=== PATIENT | female | born 2000 | race Caucasian/White ===

== ENCOUNTER 2019-08-05 17:06 | Emergency (ER) | payer SELFPAY ==
--- OUTSIDE RECORDS SUMMARY | 2019-08-05 17:08 | XMS REPORT ---
:2000 [facility] Address [address] [place] [address] Dr. Davis [address] [place] [id number] Care Team Providers Name Role Phone Unavailable Unavailable Unavailable Problems This patient has no known problems. Allergies, Adverse Reactions, Alerts This patient has no known allergies or adverse reactions. Medications This patient has no known medications.
[2019-08-05] MEDS ORDERED: IBUPROFEN 200 MG TAB PO ONE (18:12)
[2019-08-05] MEDS ORDERED: LIDOCAINE 1% W/EPI 1:100,000 MDV 20 ML VIAL ONE (18:12)
[2019-08-05] MEDS ORDERED: TETANUS & DIPHTHERIA TOX,ADULT 0.5 ML VIAL ONE (18:12)
[2019-08-05] MEDS ORDERED: IBUPROFEN 400 MG TAB ONE (18:12)
--- NOTE | 2019-08-05 19:11 | EDPHYS ---
Physician Documentation [facility] Name: Buddy Dejesus Age: 18 yrs Sex: Female : 2000 Arrival Date: 08/05/2019 Time: 17:08 Bed 19 Private MD: ED Physician Denis Morelos HPI: 08/05 18:07 This 18 yrs old Female presents to ER via Ambulatory with complaints of jmm Laceration To Hand. 18:07 Onset: The symptoms/episode began/occurred acutely, just prior to arrival. Associated jmm signs and symptoms: Pertinent negatives: deformity, heavy bleeding, loss of consciousness, numbness distal to injury. This is a 18 year old female with a history of seizures, adhd that presents to the ED with complaints of laceration to her right hand after a knife slipped out of a scabbard she was holding upside down. patient unsure of tetanus immunization. . 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 - Social history:: Smoking status: . - Ebola Screening: : Patient denies travel to an Ebola-affected area in the 21 days before illness onset. ROS: 18:07 Constitutional: Negative for fever, chills, and weight loss, Cardiovascular: Negative jmm for chest pain, palpitations, and edema, Respiratory: Negative for shortness of breath, cough, wheezing, and pleuritic chest pain. 18:07 MS/extremity: Positive for laceration. 18:07 Skin: Positive for laceration(s). 18:07 Neuro: 18:07 All other systems are negative. Exam: 18:07 Constitutional: This is a well developed, well nourished patient who is awake, alert, jmm and in no acute distress. Head/Face: atraumatic. Eyes: EOMI, no conjunctival erythema appreciated ENT: Moist Mucus Membranes Neck: Trachea midline, Supple Chest/axilla: Normal chest wall appearance and motion. Cardiovascular: Regular rate and rhythm. No edema appreciated Respiratory: Normal respirations, no respiratory distress appreciated Abdomen/GI: Non distended, soft Back: Normal ROM 18:07 Skin: 3 cm laceration noted to the right hand. 18:07 Neuro: Orientation: is normal, Mentation: is normal, Memory: is normal. 18:07 Psych: Behavior/mood is pleasant, cooperative. Vital Signs: 17:11 BP 132 / 90; Pulse 91; Resp 17; Temp 98.0(TE); Pulse Ox 100% on R/A; Weight 74.84 kg tw2 (R); Height 5 ft. 8 in. (172.72 cm) (R); Pain 6/10; 17:11 Body Mass Index 25.09 (74.84 kg, 172.72 cm) tw2 Laceration: 19:08 Wound Repair of 3cm ( 1.2in ) subcutaneous laceration to right hand. Distal jmm neuro/vascular/tendon intact. Anesthesia: Local anesthetic administered with 5 mls of 1% lidocaine. Wound prep: Simple cleansing with betadine by me. Skin closed with 5 5-0 Prolene using simple sutures and sterile technique. Patient tolerated well. MDM: 18:07 Patient medically screened. [facility] 19:08 Data reviewed: vital signs, nurses notes. Counseling: I had a detailed discussion with [facility] the patient and/or guardian regarding: the historical points, exam findings, and any diagnostic results supporting the discharge/admit diagnosis, the need for outpatient follow up, to return to the emergency department if symptoms worsen or persist or if there are any questions or concerns that arise at home. ED course: Patient given wound infection return precautions. patient understood and agrees with the plan of care. 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 Exp: em 02/24/2021. Lot #: [id number]. } Route: IM; Site: right deltoid; 19:00 Follow up: Response: No adverse reaction em 18:50 Drug: Lidocaine (1 %) 20 ml Volume: 20 ml; Route: Infiltration; em 19:00 Follow up: Response: No adverse reaction; Pain is decreased em Disposition: 08/05/19 19:10 Discharged to Home. Impression: Hand Laceration. - Condition is Stable. - Discharge Instructions: Laceration Care, Adult. - Medication Reconciliation Form, Thank You Letter, Antibiotic Education, Prescription Opioid Use, Work release form form. - Follow up: Private Physician; When: 1 week; Reason: Recheck today's complaints, Continuance of care, Staple/Suture removal, Re-evaluation by your physician. Addendum: 08/09/2019 06:33 Co-signature as Attending Physician, Denis Morelos MD I agree with the assessment and k dr plan of care. Signatures: Denis Morelos MD MD [facility] Marcelo Etienne PA PA susiem Roberto Lam, CAKE KNOCKER CAKE KNOCKER em Mirta Love RN RN tw2 Michele Dupree RN RN jd3 Corrections: (The following items were deleted from the chart) 08/05 19:39 19:10 08/05/2019 19:10 Discharged to Home. Impression: Hand Laceration. Condition is jd3 Stable. Forms are Medication Reconciliation Form, Thank You Letter, Antibiotic Education, Prescription Opioid Use. Follow up: Private Physician; When: 1 week; Reason: Recheck today's complaints, Continuance of care, Staple/Suture removal, Re-evaluation by your physician. lexis
--- NOTE | 2019-08-05 19:11 | ER ---
Nurse's Notes [facility] Name: Buddy Dejesus Age: 18 yrs Sex: Female : 2000 Arrival Date: 08/05/2019 Time: 17:08 Bed 19 Private MD: Diagnosis: Hand Laceration Presentation: 08/05 17:08 Presenting complaint: Patient states: we were going hunting this weekend and the tw2 barrel tester knife slid out of the case and i tried to grab it and it fell straight across my hand. Transition of care: patient was not received from another setting of care. Complicating Factors: There are no complicating factors for this patient. Onset of symptoms was August 05, 2019. Risk Assessment: Do you want to hurt yourself or someone else? Patient reports no desire to harm self or others. Initial Sepsis Screen: Does the patient meet any 2 criteria? No. Patient's initial sepsis screen is negative. Does the patient have a suspected source of infection? No. Patient's initial sepsis screen is negative. Care prior to arrival: None. 17:08 Method Of Arrival: Ambulatory tw2 17:08 Acuity: ZAIN 4 tw2 17:10 Note 20 or 30 minutes ago. tw2 Triage Assessment: 17:10 General: Appears in no apparent distress. Behavior is calm, cooperative, appropriate tw2 for age. Pain: Complains of pain in right hand. Injury Description: Laceration sustained to heel of right hand. 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 - Social history:: Smoking status: . - Ebola Screening: : Patient denies travel to an Ebola-affected area in the 21 days before illness onset. Screenin:55 Abuse screen: Denies threats or abuse. Nutritional screening: No deficits noted. tw2 Tuberculosis screening: No symptoms or risk factors identified. Fall Risk None identified. Assessment: 17:30 General: Appears in no apparent distress. comfortable, Behavior is calm, cooperative. em Pain: Complains of pain in heel of right hand Pain currently is 6 out of 10 on a pain scale. Neuro: Level of Consciousness is awake, alert, obeys commands, Oriented to person, place, time, situation, Appropriate for age. Cardiovascular: Capillary refill < 3 seconds Patient's skin is warm and dry. Respiratory: Airway is patent Respiratory effort is even, unlabored, Respiratory pattern is regular, symmetrical. Derm: Skin is intact, is healthy with good turgor, Skin is pink, warm \T\ dry. Musculoskeletal: Capillary refill < 3 seconds, Range of motion: intact in all extremities. Injury Description: Laceration sustained to heel of right hand is clean, 0.5 to 2.5 cm long, not bleeding. 17:35 General: The previous assessment is accurate, call light remains within reach. . ss 18:30 Reassessment: Patient appears in no apparent distress at this time. Patient and/or em family updated on plan of care and expected duration. Pain level reassessed. Patient is alert, oriented x 3, equal unlabored respirations, skin warm/dry/pink. 19:38 Reassessment: Patient appears in no apparent distress at this time. Patient and/or jd3 family updated on plan of care and expected duration. Pain level reassessed. Patient is alert, oriented x 3, equal unlabored respirations, skin warm/dry/pink. Patient states feeling better. Vital Signs: 17:11 BP 132 / 90; Pulse 91; Resp 17; Temp 98.0(TE); Pulse Ox 100% on R/A; Weight 74.84 kg tw2 (R); Height 5 ft. 8 in. (172.72 cm) (R); Pain 6/10; 17:11 Body Mass Index 25.09 (74.84 kg, 172.72 cm) tw2 ED Course: 17:08 Patient arrived in ED. as 17:09 Triage completed. tw2 17:09 Arm band placed on. tw2 17:12 Bed in low position. Call light in reach. tw2 17:15 Roberto Lam LVN is Primary Nurse. em 18:02 Marcelo Etienne PA is PHCP. [facility] 18:02 Denis Morelos MD is Attending Physician. [facility] 18:07 Wound care: to laceration was cleaned with with and NS. tw2 18:50 Assist provider with laceration repair on heel of right hand that was between 2.6 to em 7.5 cm using kirti. Set up tray. Performed by Denis Morelos MD Patient tolerated well. 19:39 Patient did not have IV access during this emergency room visit. jd3 Administered Medications: 18:17 Drug: Motrin 600 mg Route: PO; em 19:00 Follow up: Response: No adverse reaction em 18:17 Drug: Tetanus-Diphtheria Toxoid Adult 0.5 ml {Room Inspector: [employer]. Exp: em 02/24/2021. Lot #: [id number]. } Route: IM; Site: right deltoid; 19:00 Follow up: Response: No adverse reaction em 18:50 Drug: Lidocaine (1 %) 20 ml Volume: 20 ml; Route: Infiltration; em 19:00 Follow up: Response: No adverse reaction; Pain is decreased em Outcome: 19:10 Discharge ordered by . daren 19:38 Discharged to home ambulatory, with family. jd3 19:38 Condition: stable 19:38 Discharge instructions given to patient, family, Instructed on discharge instructions, follow up and referral plans. Demonstrated understanding of instructions, follow-up care. 19:39 Patient left the ED. jd3 Signatures: Marcelo Etienne PA PA jmm Munoz, Edgar, TECHNICIAN PREVENTATIVE MEDICINE TECHNICIAN PREVENTATIVE MEDICINE Bridgette Eaton [place], RN DALILA Mirta Love RN RN tw2 Michele Dupree RN RN jd3
[2019-08-05 20:22] VITALS: BP 132/90; TEMP 98; O2SAT 100
== END 2019-08-05 19:39 | disposition home or self-care (01) ==
LOC: ER 17:06
PROC: 0JQJ0ZZ Repair Right Hand Subcutaneous Tissue and Fascia, Open Approach (ICD-10-PCS; principal; 2019-08-05)
DX: S61.411A Laceration without foreign body of right hand, initial encounter (principal); W26.0XXA Contact with knife, initial encounter; Y93.89 Activity, other specified; Y92.9 Unspecified place or not applicable; Z23 Encounter for immunization
CPT/HCPCS: 90714

== ENCOUNTER 2019-12-02 14:34 | Emergency (ER) | payer SELFPAY ==
--- OUTSIDE RECORDS SUMMARY | 2019-12-02 14:37 | XMS REPORT ---
:2000 [facility] Address [address] [place] [address] Dr. Davis [address] [place] [id number] Care Team Providers Name Role Phone Unavailable Unavailable Unavailable Problems This patient has no known problems. Allergies, Adverse Reactions, Alerts This patient has no known allergies or adverse reactions. Medications This patient has no known medications.
--- NOTE | 2019-12-02 15:43 | ER ---
Nurse's Notes [facility] Name: Buddy Dejesus Age: 19 yrs Sex: Female : 2000 Arrival Date: 12/02/2019 Time: 14:37 Bed 26 Private MD: Diagnosis: Acute pharyngitis Presentation: 12/01 14:47 Chief complaint: Patient states: Cough and runny nose for the past 2 days. When she aj1 showed up to work today they checked her temperature and it was 99.3, she was sent home and told she could not return until she got a doctors note. Coronavirus screen: The patient has NOT traveled to a country currently being monitored by the [facility] within the last 14 days. Ebola Screen: Patient negative for fever greater than or equal to 101.5 degrees Fahrenheit, and additional compatible Ebola Virus Disease symptoms. Initial Sepsis Screen: Does the patient meet any 2 criteria? No. Patient's initial sepsis screen is negative. Does the patient have a suspected source of infection? Yes: Productive cough/pneumonia. Risk Assessment: Do you want to hurt yourself or someone else? Patient reports no desire to harm self or others. 14:47 Method Of Arrival: Ambulatory aj1 14:47 Acuity: ZAIN 4 aj1 Triage Assessment: 14:50 General: Appears in no apparent distress. comfortable, Behavior is calm, cooperative, aj1 appropriate for age. Pain: Denies pain. 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 - Social history:: Smoking status: Patient denies any tobacco usage or history of. Screenin:51 Abuse screen: Denies threats or abuse. Denies injuries from another. Nutritional aj1 screening: No deficits noted. Tuberculosis screening: No symptoms or risk factors identified. Assessment: 14:51 General: Appears in no apparent distress. comfortable, Behavior is calm, cooperative, aj1 appropriate for age. Pain: Denies pain. Neuro: Level of Consciousness is awake, alert, obeys commands, Oriented to person, place, time, situation. Cardiovascular: Patient's skin is warm and dry. Respiratory: Airway is patent Respiratory effort is even, unlabored, Respiratory pattern is regular, symmetrical. Respiratory: Reports cough that is hacking, persistent. GI: No signs and/or symptoms were reported involving the gastrointestinal system. : No signs and/or symptoms were reported regarding the genitourinary system. EENT: Reports nasal congestion nasal discharge. Derm: No signs and/or symptoms reported regarding the dermatologic system. Skin is pink, warm \T\ dry. normal. Musculoskeletal: No signs and/or symptoms reported regarding the musculoskeletal system. Circulation, motion, and sensation intact. 15:28 Reassessment: Patient appears in no apparent distress at this time. No changes from [facility] previously documented assessment. Patient and/or family updated on plan of care and expected duration. Pain level reassessed. Patient is alert, oriented x 3, equal unlabored respirations, skin warm/dry/pink. Vital Signs: 14:47 BP 128 / 85; Pulse 85; Resp 16; Temp 97.4; Pulse Ox 100% on R/A; Weight 77.11 kg (R); aj1 Height 5 ft. 9 in. (175.26 cm) (R); 15:28 BP 124 / 79; Pulse 92; Resp 18; Pulse Ox 98% on R/A; aj1 14:47 Body Mass Index 25.10 (77.11 kg, 175.26 cm) aj1 ED Course: 14:37 Patient arrived in ED. mr 14:38 Denis Morelos MD is Attending Physician. kdr 14:47 Leticia Morrissey, RN is Primary Nurse. aj1 14:50 Triage completed. aj1 14:50 Arm band placed on. aj1 14:51 Patient has correct armband on for positive identification. Bed in low position. Call [facility] light in reach. Side rails up X 1. 14:51 No provider procedures requiring assistance completed. aj1 16:07 Patient did not have IV access during this emergency room visit. aj1 Administered Medications: No medications were administered Outcome: 15:43 Discharge ordered by . kdr 16:07 Discharged to home ambulatory. aj1 16:07 Condition: good 16:07 Discharge instructions given to patient, Instructed on discharge instructions, follow up and referral plans. medication usage, Demonstrated understanding of instructions, follow-up care, medications, Prescriptions given X 2. 16:07 Patient left the ED. aj1 Signatures: Leticia Morrissey RN RN aj1 Denis Morelos MD MD [facility] Gail Mancini
--- NOTE | 2019-12-02 15:43 | EDPHYS ---
Physician Documentation [facility] Name: Buddy Dejesus Age: 19 yrs Sex: Female : 2000 Arrival Date: 12/02/2019 Time: 14:37 Bed 26 Private MD: ED Physician Denis Morelos HPI: 12/01 16:18 This 19 yrs old Female presents to ER via Ambulatory with complaints of Flu kdr Symptoms. 16:18 The patient presents with sore throat. The patient describes throat pain as constant, kdr raw, scratchy. Onset: The symptoms/episode began/occurred gradually, 2 day(s) ago. Severity of symptoms: At their worst the symptoms were mild, moderate, just prior to arrival, in the emergency department the symptoms are unchanged. Modifying factors: The symptoms are alleviated by nothing, the symptoms are aggravated by fluids, foods, swallowing, Patient's oral intake status: good. Associated signs and symptoms: Pertinent positives: cough, fever, nausea, Sore throat. The patient has not experienced similar symptoms in the past. The patient has not recently seen a physician. 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 - Social history:: Smoking status: Patient denies any tobacco usage or history of. ROS: 16:18 Constitutional: Negative for chills, and weight loss the patient has had fever - kdr subjective Eyes: Negative for injury, pain, redness, and discharge, Neck: Negative for injury, pain, and swelling, Cardiovascular: Negative for chest pain, palpitations, and edema, Respiratory: Negative for shortness of breath, cough, wheezing, and pleuritic chest pain, Abdomen/GI: Negative for abdominal pain, nausea, vomiting, diarrhea, and constipation, Back: Negative for injury and pain, : Negative for injury, bleeding, discharge, and swelling, MS/Extremity: Negative for injury and deformity, Skin: Negative for injury, rash, and discoloration, Neuro: Negative for headache, weakness, numbness, tingling, and seizure activity. Psych: Negative for depression, anxiety, suicide ideation, homicidal ideation, and hallucinations, Allergy/Immunology: Negative for hives, rash, and allergies, Endocrine: Negative for neck swelling, polydipsia, polyuria, polyphagia, and marked weight changes, Hematologic/Lymphatic: Negative for swollen nodes, abnormal bleeding, and unusual bruising. 16:18 ENT: Positive for sore throat. Exam: 16:18 Constitutional: This is a well developed, well nourished patient who is awake, alert, kdr and in no acute distress. Head/Face: Normocephalic, atraumatic. Eyes: Pupils equal round and reactive to light, extra-ocular motions intact. Lids and lashes normal. Conjunctiva and sclera are non-icteric and not injected. Cornea within normal limits. Periorbital areas with no swelling, redness, or edema. Neck: Trachea midline, no thyromegaly or masses palpated, and no cervical lymphadenopathy. Supple, full range of motion without nuchal rigidity, or vertebral point tenderness. No Meningismus. Chest/axilla: Normal chest wall appearance and motion. Nontender with no deformity. No lesions are appreciated. Cardiovascular: Regular rate and rhythm with a normal S1 and S2. No gallops, murmurs, or rubs. Normal PMI, no JVD. No pulse deficits. Respiratory: Lungs have equal breath sounds bilaterally, clear to auscultation and percussion. No rales, rhonchi or wheezes noted. No increased work of breathing, no retractions or nasal flaring. Abdomen/GI: Soft, non-tender, with normal bowel sounds. No distension or tympany. No guarding or rebound. No evidence of tenderness throughout. 16:18 ENT: External ear(s): are unremarkable, Ear canal(s): are normal, TM's: are normal, Nose: is normal, Mouth: Lips: Posterior pharynx: Airway: normal, Tonsils: bilaterally enlarged, with erythema, with exudate, Uvula: midline, swelling, is not appreciated, erythema, that is mild, exudate, that is mild. Vital Signs: 14:47 BP 128 / 85; Pulse 85; Resp 16; Temp 97.4; Pulse Ox 100% on R/A; Weight 77.11 kg (R); aj1 Height 5 ft. 9 in. (175.26 cm) (R); 15:28 BP 124 / 79; Pulse 92; Resp 18; Pulse Ox 98% on R/A; aj1 14:47 Body Mass Index 25.10 (77.11 kg, 175.26 cm) aj1 MDM: 15:43 Patient medically screened. kdr 16:18 Data reviewed: vital signs, nurses notes, lab test result(s). Counseling: I had a kdr detailed discussion with the patient and/or guardian regarding: the historical points, exam findings, and any diagnostic results supporting the discharge/admit diagnosis, lab results, the need for outpatient follow up. 12/01 14:54 Order name: Flu; Complete Time: 15:41 kdr 12/01 14:54 Order name: Strep; Complete Time: 15:42 kdr 12/01 14:54 Order name: Throat Culture kdr Administered Medications: No medications were administered Disposition: 12/02/19 15:43 Discharged to Home. Impression: Acute pharyngitis. - Condition is Stable. - Discharge Instructions: Pharyngitis. - Prescriptions for Augmentin 875- 125 mg Oral Tablet - take 1 tablet by ORAL route every 12 hours for 10 days; 20 tablet. Medrol (Eliseo) 4 mg Oral Tablets, Dose Pack - take 1 tablet by ORAL route as directed - follow package instructions; 1 packet. - Work release form, Medication Reconciliation Form, Thank You Letter, Antibiotic Education form. - Follow up: Private Physician; When: 2 - 3 days; Reason: If symptoms return, Further diagnostic work-up, Recheck today's complaints, Continuance of care, Re-evaluation by your physician. - Problem is new. - Symptoms have improved. Signatures: Dispatcher [employer] EDLeticia Medrano RN RN aj1 Denis Morelos MD MD kdr Corrections: (The following items were deleted from the chart) 16:07 15:43 12/02/2019 15:43 Discharged to Home. Impression: Acute pharyngitis. Condition is aj1 Stable. Forms are Medication Reconciliation Form, Thank You Letter, Antibiotic Education, Prescription Opioid Use. Follow up: Private Physician; When: 2 - 3 days; Reason: If symptoms return, Further diagnostic work-up, Recheck today's complaints, Continuance of care, Re-evaluation by your physician. Problem is new. Symptoms have improved. kdr
[2019-12-02 16:22] VITALS: TEMP 97.4
[2019-12-02 16:29] VITALS: BP 124/79; O2SAT 98
== END 2019-12-02 16:07 | disposition home or self-care (01) ==
LOC: ER 14:34
DX: J02.9 Acute pharyngitis, unspecified (principal)
CPT/HCPCS: 87070; 87081; 87804; 99282

== ENCOUNTER 2019-12-17 20:04 | Emergency (ER) | payer SELFPAY, OTHER ==
--- OUTSIDE RECORDS SUMMARY | 2019-12-17 20:06 | XMS REPORT ---
:2000 [facility] Address [address] [place] [address] Dr. Mcrae[address] [place] [address] Care Team Providers Name Role Phone Unavailable Unavailable Unavailable Problems This patient has no known problems. Allergies, Adverse Reactions, Alerts This patient has no known allergies or adverse reactions. Medications This patient has no known medications.
--- OUTSIDE RECORDS SUMMARY | 2019-12-17 20:06 | XMS REPORT | Summary of Care ---
:2000 Author Organization [facility] [employer] Address [address] [place] [address] Care Team Providers Name Role Phone Trina Dunlap POLICE SURGEON Primary Care Provider Reason for Visit Reason Comments Assessment antibiotic and control Encounter Details Date Type Department Care Team Description [facility], Assessment ( antibiotic [place] POLICE SURGEON and control) [address] [facility] [address] [place] [id number] Allergies No Known Allergiesdocumented as of this encounter (statuses as of 12/09/2019) Medications Medication Sig Dispensed Refills Start Date End Date Status acetaminophen-codeine Take 1 tablet by 0 Active (TYLENOL-CODEINE #3) mouth every 4 300-30 mg tablet (four) hours as needed. metaxalone (SKELAXIN Take by mouth. 0 Active ORAL) IBUPROFEN ORAL Take by mouth. 0 Active documented as of this encounter (statuses as of 12/09/2019) Active Problems Problem Noted Date Well woman exam 07/20/2018 Encounter for contraceptive management, unspecified type 07/20/2018 BMI 25.0-25.9,adult 07/20/2018 Screening examination for STD (sexually transmitted disease) 07/20/2018 documented as of this encounter (statuses as of 12/09/2019) Social History Tobacco Use Types Packs/Day Years Used Date Never Smoker Smokeless Tobacco: Current User Comments: once per day, vape Alcohol Use Drinks/Week oz/Week Comments No 0 Standard drinks or equivalent 0.0 Sex Assigned at Date Recorded Not on file Job Start Date Occupation Industry Not on file Not on file Not on file Travel History Travel Start Travel End No recent travel history available. documented as of this encounter Last Filed Vital Signs Not on filedocumented in this encounter Plan of Treatment Health Maintenance Due Date Last Done Comments VARICELLA VACCINES (1 of 2 - 1999 2-dose childhood series) MENINGOCOCCAL B VACCINES (1 of 2 - 2008 Risk Bexsero 2-dose series) DTaP,Tdap,and Td Vaccines (1 - 2009 Tdap) HPV VACCINES (1 - Female 2-dose 2009 series) WELL CARE VISIT: 12-21 YEARS 2010 (yearly) INFLUENZA VACCINE (#1) 2019 CHLAMYDIA SCREENING 07/20/2019 07/20/2018 PAP SMEAR 2019 MENINGOCOCCAL VACCINE Aged Out No longer eligible based on patient's age to complete this topic PNEUMOCOCCAL 0-64 YEARS COMBINED Aged Out No longer eligible based on SERIES patient's age to complete this topic documented as of this encounter Results Not on filedocumented in this encounter Insurance Payer Benefit Plan Subscriber ID Effective Phone Address Type / Group Dates [facility] xxxxxxxxx 2018-Pres [phone] Medicaid WOMEN ent [address] [place] [address] documented as of this encounter Advance Directives Name Relationship Healthcare Agent Relationship Communication Jazmín Dejesus Mother Primary healthcare agent Abhinav Gutierrez Significant Other First alternate healthcare agent
[2019-12-17] MEDS ORDERED: NA CHLORIDE 0.9% 1,000 ML ONE (20:20)
[2019-12-17 20:33] LABS: Absolute Lymphocytes (CBC) 1.8 K/uL (0.7-4.9); Basophils % 0.5 % (0-1.3); Hematocrit 41.2 % (36.0-45.0); Lymphocytes % 18.4 % (15.3-44.8); MPV 8.7 fL (7.6-11.3)
[2019-12-17 20:48] LABS: Protime INR 1.08
[2019-12-17 20:53] LABS: ALT/SGPT 18 U/L (12-78); AST/SGOT 14 U/L (15-37); Albumin 4.4 g/dL (3.4-5.0); Alkaline Phosphatase 87 U/L (45-117); BUN Blood Urea Nitrogen 12 mg/dL (7-18); Bicarbonate 24 mmol/L (21-32); Bilirubin Direct < 0.1 mg/dL (0-0.2); Bilirubin Total 0.3 mg/dL (0.2-1.0); Glucose Level 90 mg/dL (74-106); NT PRO-BNP 23 pg/mL (<125); Potassium 3.4 mmol/L (3.5-5.1); Protein, Total 8.4 g/dL (6.4-8.2); Sodium Level 138 mmol/L (136-145)
--- NOTE | 2019-12-17 20:54 | RAD REPORT ---
EXAM DESCRIPTION: RAD - Chest Single View - 12/17/2019 8:42 pm CLINICAL HISTORY: Cough;SOB Chest pain. COMPARISON: <Comparisons> FINDINGS: Portable technique limits examination quality. The lungs are grossly clear. The heart is normal in size. No displaced fractures. IMPRESSION: No acute intrathoracic process suspected.
[2019-12-17] MEDS ORDERED: METHYLPREDNISOLONE 40 MG INJ ONE (21:14)
[2019-12-17] MEDS ORDERED: POTASSIUM 25 MEQ EFFERV TAB ONE (21:24)
--- NOTE | 2019-12-17 22:02 | EDPHYS ---
Physician Documentation [facility] Name: Buddy Dejesus Age: 19 yrs Sex: Female : 2000 Arrival Date: 12/17/2019 Time: 20:06 Bed 30 Private MD: ED Physician Temo Hogan HPI: 12/16 20:23 This 19 yrs old Female presents to ER via EMS with complaints of cough, cp shortness of breath. 20:23 The patient or guardian reports cough, with no sputum, difficulty breathing. Onset: The cp symptoms/episode began/occurred 1 week(s) ago. 20:23 Associated signs and symptoms: Pertinent positives: sore throat, shortness of breath, cp Pertinent negatives: diarrhea, fever, vomiting. 20:23 Patient reports she is currently taking oral Augmentin times 1 week. 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 - Social history:: Smoking status: Patient denies any tobacco usage or history of. ROS: 20:30 Constitutional: Negative for body aches, chills, fever, poor PO intake. cp 20:30 Eyes: Negative for injury, pain, redness, and discharge. cp 20:30 ENT: Positive for rhinorrhea, sore throat, Negative for drainage from ear(s), ear pain. 20:30 Cardiovascular: Negative for chest pain, edema, palpitations. 20:30 Respiratory: Positive for cough, "sounds productive", shortness of breath. 20:30 Abdomen/GI: Negative for abdominal pain, nausea, vomiting, and diarrhea. 20:30 Skin: Negative for rash. 20:30 Neuro: Positive for near syncope, weakness, Negative for altered mental status, headache. 20:30 All other systems are negative. Exam: 20:35 Constitutional: The patient appears in no acute distress, alert, awake, non-toxic, well cp developed, well nourished. 20:35 Head/Face: Normocephalic, atraumatic. cp Vital Signs: 20:06 BP 127 / 82; Pulse 88; Resp 20 S; Pulse Ox 100% on R/A; Weight 78.02 kg (R); Height 5 ca1 ft. 9 in. (175.26 cm) (R); 20:07 Temp 98.4; ll1 20:43 BP 120 / 73 Supine; Pulse 80; Resp 19; ll1 20:43 BP 122 / 83 Sitting; Pulse 83; Resp 18; ll1 20:43 BP 127 / 90 Standing; Pulse 92; Resp 18; ll1 21:43 BP 123 / 80; Pulse 90; Resp 18; Pulse Ox 100% on R/A; ll1 22:42 BP 124 / 74; Pulse 89; Resp 18; Temp 98.0; Pulse Ox 100% ; Pain 0/10; ll1 20:06 Body Mass Index 25.40 (78.02 kg, 175.26 cm) ca1 MDM: 20:12 Patient medically screened. cp 21:01 ED course: chest xray negative for focal pneumonia. cp 22:00 Data reviewed: vital signs, nurses notes, lab test result(s), EKG, radiologic studies, cp plain films. 22:00 Differential diagnosis: bronchitis, flu, URI, pneumonia. Test interpretation: by ED cp physician or midlevel provider: ECG. Counseling: I had a detailed discussion with the patient and/or guardian regarding: the historical points, exam findings, and any diagnostic results supporting the discharge/admit diagnosis, lab results, radiology results, to return to the emergency department if symptoms worsen or persist or if there are any questions or concerns that arise at home. Response to treatment: the patient's symptoms have markedly improved after treatment, and as a result, I will discharge patient. 12/16 20:09 Order name: Basic Metabolic Panel; Complete Time: 21:02 cp 12/16 21:02 Interpretation: Normal except: K 3.4; GFR 75. cp 12/16 20:09 Order name: CBC with Diff; Complete Time: 21:02 cp 12/16 20:09 Order name: LFT's; Complete Time: 21:02 cp 12/16 20:09 Order name: Magnesium; Complete Time: 21:02 cp 12/16 20:09 Order name: NT PRO-BNP; Complete Time: 21:02 cp 12/16 20:09 Order name: PT-INR; Complete Time: 21:02 cp 12/16 20:09 Order name: XRAY Chest (1 view); Complete Time: 21:02 12/16 21:02 Interpretation: Report review. 12/16 20:09 Order name: Influenza Screen (a \\T\\ B); Complete Time: 21:02 12/16 20:09 Order name: Strep; Complete Time: 21:02 12/16 20:09 Order name: D-Dimer; Complete Time: 21:02 12/16 21:01 Order name: Throat Culture EDOK 12/16 21:12 Order name: Misc. Lab Test 12/16 20:09 Order name: Cardiac monitoring 12/16 20:09 Order name: EKG - Nurse/Tech 12/16 20:09 Order name: IV Saline Lock; Complete Time: 20:48 12/16 20:09 Order name: Labs collected and sent; Complete Time: 20:48 12/16 20:09 Order name: O2 Per Protocol; Complete Time: 20:48 12/16 20:09 Order name: O2 Sat Monitoring; Complete Time: 20:48 12/16 20:10 Order name: Urine Dipstick-Ancillary (obtain specimen) 12/16 20:10 Order name: Urine Test (obtain specimen) 12/16 20:23 Order name: Orthostatics; Complete Time: 20:47 cp Administered Medications: 20:42 Drug: NS 0.9% 1000 ml Route: IV; Rate: 1 bolus; Site: right antecubital; ll1 22:41 Follow up: Response: No adverse reaction; IV Status: Completed infusion; IV Intake: ll1 700ml 21:40 Drug: SOLU-Medrol 60 mg Route: IVP; Site: right antecubital; ll1 22:41 Follow up: Response: No adverse reaction ll1 21:40 Drug: Potassium Effervescent Tablet 25 mEq Route: PO; ll1 22:40 Follow up: Response: No adverse reaction ll1 21:41 Drug: Albuterol HFA Inhaler 2 puffs Route: Inhalation; ll1 22:41 Follow up: Response: No adverse reaction ll1 Disposition: 23:45 Co-signature as Attending Physician, Temo Hogan MD. rn Disposition: 12/17/19 22:01 Discharged to Home. Impression: Acute bronchitis. - Condition is Stable. - Discharge Instructions: Acute Bronchitis, Adult, Form - Excuse from Work, School, or Physical Activity. - Prescriptions for Tessalon Perles 100 mg Oral Capsule - take 2 capsule by ORAL route every 8 hours As needed; 30 capsule. Albuterol Sulfate 90 mcg/actuation - inhale 1-2 puff by INHALATION route every 4-6 hours; 1 Inhaler. Medrol (Eliseo) 4 mg Oral Tablets, Dose Pack - take 1 tablet by ORAL route as directed - follow package instructions; 1 packet. - Medication Reconciliation Form, Thank You Letter, Antibiotic Education, Prescription Opioid Use form. - Follow up: Emergency Department; When: As needed; Reason: Worsening of condition. - Problem is new. - Symptoms have improved. Signatures: Dispatcher [employer] EDMS Temo Hogan MD MD rn Sebas Valles PA PA cp Acob, Cheryl, RN RN Avi Carlton RN RN ll1 Corrections: (The following items were deleted from the chart) 22:45 22:01 12/17/2019 22:01 Discharged to Home. Impression: Acute bronchitis. Condition is ll1 Stable. Forms are Medication Reconciliation Form, Thank You Letter, Antibiotic Education, Prescription Opioid Use. Follow up: Emergency Department; When: As needed; Reason: Worsening of condition. Problem is new. Symptoms have improved. cp
--- NOTE | 2019-12-17 22:02 | ER ---
Nurse's Notes [facility] Name: Buddy Dejesus Age: 19 yrs Sex: Female : 2000 Arrival Date: 12/17/2019 Time: 20:06 Bed 30 Private MD: Diagnosis: Acute bronchitis Presentation: 12/16 20:06 Chief complaint: EMS states: SOB for about a week. Rhonchi on both lungs. Pt takes ca1 Augmentin, Tylenol and Dayquil. 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 20:06 Method Of Arrival: EMS: [facility] ca1 20:06 Acuity: ZAIN 3 ca1 20:11 Initial Sepsis Screen: Does the patient meet any 2 criteria? No. Patient's initial ca1 sepsis screen is negative. Does the patient have a suspected source of infection? No. Patient's initial sepsis screen is negative. Risk Assessment: Do you want to hurt yourself or someone else? Patient reports no desire to harm self or others. 21:44 Coronavirus screen: Surgical mask placed on patient. Patient moved to private room, ll1 placed in contact and droplet isolation with eye protection until further assessment. Patient reports a cough. Patient reports shortness of breath or difficulty breathing. Patient denies measured and/or subjective temperature greater than 100.4F. Patient denies travel on a cruise ship or to a country the [facility] currently lists as an affected area. Patient denies contact with known and/or suspected case of COVID-19. 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 Ebola Screen: Patient denies exposure to infectious person. Patient denies travel to an Ebola-affected area in the 21 days before illness onset. No symptoms or risks identified at this time. Onset of symptoms was December 09, 2019. 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 - Social history:: Smoking status: Patient denies any tobacco usage or history of. Screenin:46 Abuse screen: Denies threats or abuse. Nutritional screening: No deficits noted. ll1 Tuberculosis screening: No symptoms or risk factors identified. Fall Risk IV access (20 points). Gait- Weak (10 pts.). Mental Status- Oriented to own ability (0 pts). Total Dominguez Fall Scale indicates Low Risk Score (25-44 pts). Assessment: 20:44 General: Appears ill, Behavior is calm, cooperative. Pain: Complains of pain in chest ll1 Pain currently is 6 out of 10 on a pain scale. Quality of pain is described as aching, Is intermittent. Neuro: No deficits noted. Cardiovascular: No deficits noted. Respiratory: Reports shortness of breath on exertion cough that is productive, Airway is patent Trachea midline Respiratory effort is labored, Respiratory pattern is regular, symmetrical, Breath sounds with crackles bilaterally. Onset: The symptoms/episode began/occurred 1-2 weeks ago, the patient has moderate shortness of breath. GI: No deficits noted. 21:46 Reassessment: No changes from previously documented assessment. Patient and/or family ll1 updated on plan of care and expected duration. Pain level reassessed. Patient is alert, oriented x 3, equal unlabored respirations, skin warm/dry/pink. Patient states feeling better. states she would like to be discharged home.. 12/17 08:26 Reassessment: THERESA# [id number]. Vital Signs: 12/16 20:06 BP 127 / 82; Pulse 88; Resp 20 S; Pulse Ox 100% on R/A; Weight 78.02 kg (R); Height 5 ca1 ft. 9 in. (175.26 cm) (R); 20:07 Temp 98.4; ll1 20:43 BP 120 / 73 Supine; Pulse 80; Resp 19; ll1 20:43 BP 122 / 83 Sitting; Pulse 83; Resp 18; ll1 20:43 BP 127 / 90 Standing; Pulse 92; Resp 18; ll1 21:43 BP 123 / 80; Pulse 90; Resp 18; Pulse Ox 100% on R/A; ll1 22:42 BP 124 / 74; Pulse 89; Resp 18; Temp 98.0; Pulse Ox 100% ; Pain 0/10; ll1 20:06 Body Mass Index 25.40 (78.02 kg, 175.26 cm) ca1 ED Course: 20:06 Patient arrived in ED. ca1 20:08 Sebas Valles PA is PHCP. cp 20:08 Temo Hogan MD is Attending Physician. cp 20:08 Triage completed. ca1 20:09 Arm band placed on right wrist. ca1 20:30 Inserted saline lock: 20 gauge in right antecubital area, using aseptic technique. ll1 Blood collected. 20:40 Avi Rachel, DALILA is Primary Nurse. ll1 20:43 XRAY Chest (1 view) In Process Unspecified. EDMS 20:46 Patient has correct armband on for positive identification. Bed in low position. Call ll1 light in reach. Side rails up X 1. Contact isolation initiated. Airborne precautions initiated. Droplet isolation initiated. negative pressure room. 22:42 No provider procedures requiring assistance completed. IV discontinued, intact, ll1 bleeding controlled, No redness/swelling at site. Pressure dressing applied. Administered Medications: 20:42 Drug: NS 0.9% 1000 ml Route: IV; Rate: 1 bolus; Site: right antecubital; ll1 22:41 Follow up: Response: No adverse reaction; IV Status: Completed infusion; IV Intake: ll1 700ml 21:40 Drug: SOLU-Medrol 60 mg Route: IVP; Site: right antecubital; ll1 22:41 Follow up: Response: No adverse reaction ll1 21:40 Drug: Potassium Effervescent Tablet 25 mEq Route: PO; ll1 22:40 Follow up: Response: No adverse reaction ll1 21:41 Drug: Albuterol HFA Inhaler 2 puffs Route: Inhalation; ll1 22:41 Follow up: Response: No adverse reaction ll1 Intake: 22:41 IV: 700ml; Total: 700ml. ll1 Outcome: 22:01 Discharge ordered by . cp 22:43 Discharged to home ambulatory, mask in place ll1 22:43 Condition: stable 22:43 Discharge instructions given to patient, Instructed on discharge instructions, follow up and referral plans. medication usage, quarantine 14 days. Demonstrated understanding of instructions, follow-up care, medications, quarantine information. Prescriptions given X 3. 22:45 Patient left the ED. ll1 Addendum: 12/21/2019 10:12 Addendum: Other pt notified of negative COVID-19 swab results. Pt advised to continue d m5 to monitor symptoms, return to the ER for worsening symptoms and to remain in isolation until fever free for 72 hours. Signatures: Dispatcher [employer] Gisella Campa RN RN dm5 Ginny Hercules RN RN ss Sebas Valles PA PA cp Acob, Cheryl, RN RN ca1 Avi Rachel RN RN ll1 Corrections: (The following items were deleted from the chart) 12/16 20:11 20:06 Chief complaint: EMS states: SOB for about a week. Rhonchi on both lungs. Pt ca1 takes Augmentin, Tylenol and Dayquil. Got weak and was eased to the ground. ca1 20:11 20:06 BP 127 / 82; 78.02 kg Reported; Height 5 ft. 9 in. Reported; BMI: 25.4; ca1 ca1
[2019-12-17 23:11] VITALS: O2SAT 100
[2019-12-17 23:18] VITALS: BP 124/74; TEMP 98
== END 2019-12-17 22:45 | disposition home or self-care (01) ==
LOC: ER 20:04
DX: J20.9 Acute bronchitis, unspecified (principal); Z03.818 Encounter for observation for suspected exposure to other biological agents ruled out
CPT/HCPCS: 36415; 71045; 80048; 80076; 83735; 83880; 85025; 85379; 85610; 87070; 87081; 87804; 96361; 96374; 99285; J2920; J7030; U0001